=== PATIENT | male | born 1980 | race Caucasian/White ===

== ENCOUNTER 2018-04-05 17:57 | Emergency (ER) | payer MEDICAID ==
[2018-04-05] MEDS ORDERED: DEXAMETHASONE 10 MG/ML 1 ML INJ IM (20:00)
[2018-04-05] MEDS: DEXAMETHASONE 10 MG/ML 1 ML INJ IM (20:08)
[2018-04-05] MEDS: ALBUTEROL 0.5% (NEB) 2.5 MG/0.5 ML AMP INH (20:16)
[2018-04-05] MEDS: IPRATROPIUM (NEB) 0.5 MG/2.5 ML AMP INH (20:17)
== END 2018-04-05 21:16 | disposition home or self-care (01) ==
LOC: FTE 17:57
DX: J45.901 Unspecified asthma with (acute) exacerbation (principal)
CPT/HCPCS: 94644; 96372; 99284-25

== ENCOUNTER 2018-06-06 07:45 | Emergency (ER) | payer SELFPAY, MEDICAID ==
[2018-06-06] MEDS: DEXAMETHASONE 10 MG/ML 1 ML INJ IM (08:12)
[2018-06-06] MEDS: IPRATROPIUM (NEB) 0.5 MG/2.5 ML AMP NEB (08:19)
[2018-06-06] MEDS: ALBUTEROL 0.083% (NEB) 2.5 MG/3 ML AMP NEB (08:19)
== END 2018-06-06 09:02 | disposition home or self-care (01) ==
LOC: FTE 07:45
DX: J45.901 Unspecified asthma with (acute) exacerbation (principal)
CPT/HCPCS: 94664; 96372; 99284-25

== ENCOUNTER 2018-06-24 07:56 | Emergency (ER) | payer SELFPAY ==
[2018-06-24] MEDS: KETOROLAC 60 MG INJ IM (08:41)
== END 2018-06-24 09:18 | disposition home or self-care (01) ==
LOC: FTE 07:56
DX: L03.116 Cellulitis of left lower limb (principal); S90.822A Blister (nonthermal), left foot, initial encounter; J45.909 Unspecified asthma, uncomplicated; W57.XXXA Bitten or stung by nonvenomous insect and other nonvenomous arthropods, initial encounter; Y92.9 Unspecified place or not applicable
CPT/HCPCS: 96372; 99284-25

== ENCOUNTER 2018-07-03 11:37 | Emergency (ER) | payer SELFPAY ==
[2018-07-03] MEDS: DEXAMETHASONE 10 MG/ML 1 ML INJ IM (12:00)
[2018-07-03] MEDS: ALBUTEROL 0.5% (NEB) 2.5 MG/0.5 ML AMP INH (12:19)
[2018-07-03] MEDS: IPRATROPIUM (NEB) 0.5 MG/2.5 ML AMP INH (12:19)
== END 2018-07-03 13:25 | disposition home or self-care (01) ==
LOC: FTE 11:37
DX: J45.901 Unspecified asthma with (acute) exacerbation (principal)
CPT/HCPCS: 94644; 96372; 99284-25

== ENCOUNTER 2018-07-10 21:36 | Inpatient (IN) | payer SELFPAY ==
[2018-07-10] MEDS: EPINEPHrine 1 MG INJ SC (22:16)
[2018-07-10] MEDS: SOD CHLORIDE 0.9% 1,000 ML IV (22:22)
[2018-07-10] MEDS: DEXAMETHASONE 10 MG/ML 1 ML INJ IV (22:22)
[2018-07-10 22:30] LABS: WHITE BLOOD COUNT 14.5 10^3/ul (4.8-10.8)
[2018-07-10 22:30] LABS: ABNORMAL IP MESSAGE 1; HEMATOCRIT 50.5 % (42.0-52.0); HEMOGLOBIN 17.3 g/dl (14.0-18.0); MEAN CORPUSCULAR HEMOGLOBIN 29.9 pg (29.0-33.0); MEAN CORPUSCULAR HGB CONC 34.3 g/dl (32.0-37.0); MEAN CORPUSCULAR VOLUME 87.4 fl (82.0-101.0); MEAN PLATELET VOLUME 10.5 fl (7.4-10.4); PLATELET COUNT 414 10^3/UL (140-415); POSITIVE DIFF @See below; RED BLOOD COUNT 5.78 10^6/ul (4.70-6.10); RED CELL DISTRIBUTION WIDTH 12.1 % (11.5-14.5)
[2018-07-10 22:34] LABS: ADD MAN DIFF? YES
[2018-07-10] MEDS: ALBUTEROL 0.5% (NEB) 2.5 MG/0.5 ML AMP INH (22:35)
[2018-07-10 22:47] LABS: ANION GAP 8 (5-13); BLOOD UREA NITROGEN 12 mg/dl (7-20); CALCIUM 8.1 mg/dl (8.4-10.2); CARBON DIOXIDE 23 mmol/L (21-31); CHLORIDE 109 mmol/L (97-110); CREATININE 1.31 mg/dl (0.61-1.24); Estimated GFR > 60 mL/min (>60); GLUCOSE 177 mg/dl (70-220); POTASSIUM 4.3 mmol/L (3.5-5.1); SODIUM 140 mmol/L (135-144)
[2018-07-10] MEDS: DIPHENHYDRAMINE 50 MG INJ IV (22:55)
[2018-07-10] MEDS: FAMOTIDINE 20 MG TAB PO (22:55)
[2018-07-10 22:59] LABS: TROPONIN-I < 0.012 ng/ml (0.000-0.120)
[2018-07-10 23:19] LABS: EOSINOPHILS % (M) 1 % (0-7); GIANT THROMBO% (M) 1 % (0-0); LYMPHOCYTES #M 5.8 10^3/ul (0.8-2.9); LYMPHOCYTES % (M) 40 % (15-51); MONOCYTE #M 0.5 10^3/ul (0.3-0.9); MONOCYTES % (M) 4 % (0-11); PLATELET ESTIMATE NORMAL; REACTIVE LYMPHOCYTES #M 1.3 10^3/ul (0.0-0.0); REACTIVE LYMPHOCYTES% (M) 9 % (0-0); SEGMENTED NEUTROPHILS (M) % 46 % (39-77); SMUDGE%M 67 % (0-0)
[2018-07-11] MEDS ORDERED: DIPHENHYDRAMINE 50 MG INJ IV (01:00)
[2018-07-11] MEDS ORDERED: ACETAMINOPHEN 325 MG TAB PO (01:00)
[2018-07-11] MEDS ORDERED: ONDANSETRON 4 MG INJ IV (01:00)
[2018-07-11] MEDS ORDERED: NACL 0.9% 3 ML SYG IV (01:00)
[2018-07-11] MEDS ORDERED: BISACODYL (EC) 5 MG TAB PO (01:00)
[2018-07-11] MEDS ORDERED: DOCUSATE SODIUM 100 MG CAP PO (01:00)
[2018-07-11] MEDS ORDERED: ALBUTEROL/IPRATROPIUM (NEB) 3 ML AMP HHN (01:00)
[2018-07-11 06:19] LABS: ADD MAN DIFF? NO
[2018-07-11 06:23] LABS: WHITE BLOOD COUNT 18.3 10^3/ul (4.8-10.8)
[2018-07-11 06:23] LABS: BASOPHILS % 0.2 % (0.0-2.0); HEMATOCRIT 45.7 % (42.0-52.0); HEMOGLOBIN 15.7 g/dl (14.0-18.0); LYMPHOCYTES # 1.1 10^3/ul (0.8-2.9); LYMPHOCYTES % 6.2 % (15.0-51.0); MEAN CORPUSCULAR HEMOGLOBIN 30.1 pg (29.0-33.0); MEAN CORPUSCULAR HGB CONC 34.4 g/dl (32.0-37.0); MEAN CORPUSCULAR VOLUME 87.7 fl (82.0-101.0); MEAN PLATELET VOLUME 10.6 fl (7.4-10.4); MONOCYTE # 0.1 10^3/ul (0.3-0.9); MONOCYTES % 0.5 % (0.0-11.0); NEUTROPHILS % 92.6 % (39.0-77.0); PLATELET COUNT 321 10^3/UL (140-415); RED BLOOD COUNT 5.21 10^6/ul (4.70-6.10); RED CELL DISTRIBUTION WIDTH 12.2 % (11.5-14.5)
[2018-07-11 06:57] LABS: ALANINE AMINOTRANSFERASE 16 IU/L (13-69); ALBUMIN 3.8 g/dl (3.3-4.9); ALBUMIN/GLOBULIN RATIO 1.35; ALKALINE PHOSPHATASE 75 IU/L (42-121); ANION GAP 9 (5-13); ASPARTATE AMINO TRANSFERASE 24 IU/L (15-46); BILIRUBIN,INDIRECT 0.2 mg/dl (0-1.1); BILIRUBIN,TOTAL 0.2 mg/dl (0.2-1.3); BLOOD UREA NITROGEN 12 mg/dl (7-20); CALCIUM 8.7 mg/dl (8.4-10.2); CARBON DIOXIDE 22 mmol/L (21-31); CHLORIDE 108 mmol/L (97-110); CHOL/HDL RATIO 4.9 RATIO; CHOLESTEROL 163 mg/dl (100-200); CREATININE 1.12 mg/dl (0.61-1.24); Estimated GFR > 60 mL/min (>60); GLUCOSE 168 mg/dl (70-220); HDL CHOLESTEROL 33 mg/dl (28-63); LDL CHOLESTEROL,CALCULATED 96 mg/dl; MAGNESIUM 2.1 mg/dl (1.7-2.5); POTASSIUM 4.4 mmol/L (3.5-5.1); SODIUM 139 mmol/L (135-144); TOTAL PROTEIN 6.6 g/dl (6.1-8.1); TRIGLYCERIDES 171 mg/dl (0-149)
[2018-07-11 07:22] LABS: THYROID STIMULATING HORMONE 0.547 MIU/L (0.465-4.680)
[2018-07-11 07:38] LABS: C-REACTIVE PROTEIN 0.8 mg/dl (0.0-0.9)
[2018-07-11] MEDS: CLINDAMYCIN 300 MG CAP PO ×3 (08:35→18:11)
[2018-07-11] MEDS: FAMOTIDINE 20 MG INJ IV ×2 (08:35→20:30)
[2018-07-11 08:38] LABS: ERYTHROCYTE SEDIMENTATION RATE 1 mm/Hr (0-15)
[2018-07-11 12:54] LABS: HEMOGLOBIN A1C 5.3 % (0-5.9)
[2018-07-11 14:43] LABS: AMPHETAMINE/METHAMPHETAMINE Negative (NEGATIVE); BARBITURATES Negative (NEGATIVE); BENZODIAZEPINES Negative (NEGATIVE); COCAINE Negative (NEGATIVE); OPIATES Negative (NEGATIVE)
[2018-07-11 14:57] LABS: CANNABINOIDS Positive (NEGATIVE)
[2018-07-12] MEDS: CLINDAMYCIN 300 MG CAP PO ×3 (00:15→12:10)
[2018-07-12 06:00] LABS: ADD MAN DIFF? NO
[2018-07-12 06:10] LABS: BASOPHILS % 0.2 % (0.0-2.0); HEMATOCRIT 44.5 % (42.0-52.0); HEMOGLOBIN 15.1 g/dl (14.0-18.0); LYMPHOCYTES # 2.3 10^3/ul (0.8-2.9); LYMPHOCYTES % 16.4 % (15.0-51.0); MEAN CORPUSCULAR HGB CONC 33.9 g/dl (32.0-37.0); MEAN CORPUSCULAR VOLUME 88.3 fl (82.0-101.0); MEAN PLATELET VOLUME 10.7 fl (7.4-10.4); MONOCYTE # 0.9 10^3/ul (0.3-0.9); NEUTROPHIL # 10.8 10^3/ul (1.6-7.5); NEUTROPHILS % 76.7 % (39.0-77.0); PLATELET COUNT 322 10^3/UL (140-415); RED BLOOD COUNT 5.04 10^6/ul (4.70-6.10); RED CELL DISTRIBUTION WIDTH 12.4 % (11.5-14.5)
[2018-07-12 06:10] LABS: WHITE BLOOD COUNT 14.1 10^3/ul (4.8-10.8)
[2018-07-12 06:51] LABS: MAGNESIUM 2.1 mg/dl (1.7-2.5)
[2018-07-12 06:57] LABS: ALANINE AMINOTRANSFERASE 15 IU/L (13-69); ALBUMIN 3.9 g/dl (3.3-4.9); ALKALINE PHOSPHATASE 68 IU/L (42-121); ANION GAP 10 (5-13); ASPARTATE AMINO TRANSFERASE 14 IU/L (15-46); BILIRUBIN,INDIRECT 0.3 mg/dl (0-1.1); BILIRUBIN,TOTAL 0.3 mg/dl (0.2-1.3); BLOOD UREA NITROGEN 13 mg/dl (7-20); CALCIUM 8.8 mg/dl (8.4-10.2); CARBON DIOXIDE 23 mmol/L (21-31); CHLORIDE 109 mmol/L (97-110); CREATININE 0.93 mg/dl (0.61-1.24); Estimated GFR > 60 mL/min (>60); GLUCOSE 117 mg/dl (70-220); SODIUM 142 mmol/L (135-144); TOTAL PROTEIN 6.9 g/dl (6.1-8.1)
[2018-07-12] MEDS: CHOLECALCIFEROL 1,000 UNIT TAB PO (08:54)
[2018-07-12] MEDS: FAMOTIDINE 20 MG INJ IV (08:54)
[2018-07-12] MEDS: ENOXAPARIN 40 MG/0.4 ML SYG SC (11:16)
[2018-07-12] MEDS ORDERED: FAMOTIDINE 20 MG TAB PO (21:00)
== END 2018-07-12 18:09 | disposition home or self-care (01) | DRG 918 ==
LOC: TEL 23:49 → E/R 21:36
DX: T36.1X1A Poisoning by cephalosporins and other beta-lactam antibiotics, accidental (unintentional), initial encounter (principal); N17.9 Acute kidney failure, unspecified; E66.9 Obesity, unspecified; Z68.37 Body mass index [BMI] 37.0-37.9, adult; J45.909 Unspecified asthma, uncomplicated; E78.5 Hyperlipidemia, unspecified; L27.0 Generalized skin eruption due to drugs and medicaments taken internally; R06.02 Shortness of breath; E88.81 Metabolic syndrome and other insulin resistance; L08.9 Local infection of the skin and subcutaneous tissue, unspecified
CPT/HCPCS: 71045; 73630-LT; 80048; 80053; 80061; 80307; 82306; 82652; 83036; 83735; 84100; 84443; 84484; 85025; 85651; 86140; 93005; 94644; 96372; 96374; 96375; 99291-25

== ENCOUNTER 2018-07-17 15:10 | Emergency (ER) | payer SELFPAY | END 2018-07-17 17:33 | disposition home or self-care (01) | LOC: FTE 15:10 | DX: Z76.0 Encounter for issue of repeat prescription (principal); J45.909 Unspecified asthma, uncomplicated | CPT/HCPCS: 99281 ==

== ENCOUNTER 2018-07-27 07:57 | Emergency (ER) | payer SELFPAY ==
[2018-07-27] MEDS: TRIMETHOPRIM/SULFAMETHOX (DS) TAB PO (09:17)
[2018-07-27] MEDS: ALBUTEROL 0.083% (NEB) 2.5 MG/3 ML AMP HHN (09:17)
[2018-07-27] MEDS: predniSONE 20 MG TAB PO (09:18)
== END 2018-07-27 10:35 | disposition home or self-care (01) ==
LOC: FTE 07:57
DX: J45.901 Unspecified asthma with (acute) exacerbation (principal); S90.822A Blister (nonthermal), left foot, initial encounter; X58.XXXA Exposure to other specified factors, initial encounter; Y92.9 Unspecified place or not applicable
CPT/HCPCS: 94664; 99283-25

== ENCOUNTER 2018-09-28 06:55 | Emergency (ER) | payer MEDICAID | END 2018-09-28 07:30 | disposition home or self-care (01) | LOC: FTE 06:55 | DX: H69.80 Other specified disorders of Eustachian tube, unspecified ear (principal); J45.909 Unspecified asthma, uncomplicated | CPT/HCPCS: 99283; Z7502 ==

== ENCOUNTER 2018-10-05 09:42 | Emergency (ER) | payer MEDICAID ==
[2018-10-05 10:41] LABS: ADD UMIC YES; UR ASCORBIC ACID NEGATIVE (NEGATIVE); UR BILIRUBIN (Dip) NEGATIVE (NEGATIVE); UR BLOOD (Dip) 1+ mg/dL (NEGATIVE); UR CLARITY SLIGHTLY CLOUDY (CLEAR); UR COLOR YELLOW (YELLOW); UR GLUCOSE (Dip) NEGATIVE (NEGATIVE); UR KETONES (Dip) TRACE mg/dL (NEGATIVE); UR LEUKOCYTE ESTERASE (Dip) NEGATIVE Leu/ul (NEGATIVE); UR MUCUS FEW /HPF (NONE SEEN); UR NITRITE (Dip) NEGATIVE (NEGATIVE); UR RBC 3 /HPF (0-5); UR TOTAL PROTEIN (Dip) 1+ mg/dl (NEGATIVE); UR UROBILINOGEN (Dip) 1+ mg/dL (NEGATIVE); UR WBC 3 /HPF (0-5)
[2018-10-05 10:42] LABS: ADD MAN DIFF? NO
[2018-10-05 10:47] LABS: BASOPHIL # 0.1 10^3/ul (0.0-0.1); BASOPHILS % 0.4 % (0.0-2.0); EOSINOPHILS # 0.1 10^3/ul (0.0-0.5); EOSINOPHILS % 0.6 % (0.0-7.0); HEMATOCRIT 47.4 % (42.0-52.0); HEMOGLOBIN 16.2 g/dl (14.0-18.0); LYMPHOCYTES # 2.3 10^3/ul (0.8-2.9); LYMPHOCYTES % 13.1 % (15.0-51.0); MEAN CORPUSCULAR HEMOGLOBIN 29.1 pg (29.0-33.0); MEAN CORPUSCULAR HGB CONC 34.2 g/dl (32.0-37.0); MEAN CORPUSCULAR VOLUME 85.1 fl (82.0-101.0); MEAN PLATELET VOLUME 10.2 fl (7.4-10.4); MONOCYTE # 1.3 10^3/ul (0.3-0.9); MONOCYTES % 7.5 % (0.0-11.0); NEUTROPHIL # 13.5 10^3/ul (1.6-7.5); NEUTROPHILS % 78.1 % (39.0-77.0); PLATELET COUNT 347 10^3/UL (140-415); RED BLOOD COUNT 5.57 10^6/ul (4.70-6.10); RED CELL DISTRIBUTION WIDTH 11.8 % (11.5-14.5)
[2018-10-05 10:47] LABS: WHITE BLOOD COUNT 17.3 10^3/ul (4.8-10.8)
[2018-10-05 11:05] LABS: BARBITURATES NEGATIVE (NEGATIVE); BENZODIAZEPINES NEGATIVE (NEGATIVE)
[2018-10-05 11:06] LABS: CANNABINOIDS POSITIVE (NEGATIVE); COCAINE POSITIVE (NEGATIVE); OPIATES NEGATIVE (NEGATIVE)
[2018-10-05 11:14] LABS: ALANINE AMINOTRANSFERASE 24 IU/L (13-69); ALBUMIN 4.5 g/dl (3.3-4.9); ALKALINE PHOSPHATASE 97 IU/L (42-121); AMPHETAMINE/METHAMPHETAMINE POSITIVE (NEGATIVE); ANION GAP 13 (5-13); ASPARTATE AMINO TRANSFERASE 35 IU/L (15-46); BILIRUBIN,INDIRECT 0.5 mg/dl (0-1.1); BILIRUBIN,TOTAL 0.5 mg/dl (0.2-1.3); BLOOD UREA NITROGEN 15 mg/dl (7-20); CALCIUM 9.2 mg/dl (8.4-10.2); CARBON DIOXIDE 25 mmol/L (21-31); CHLORIDE 103 mmol/L (97-110); CREATININE 1.28 mg/dl (0.61-1.24); Estimated GFR > 60 mL/min (>60); GLUCOSE 101 mg/dl (70-220); POTASSIUM 3.4 mmol/L (3.5-5.1); SODIUM 141 mmol/L (135-144); TOTAL PROTEIN 7.7 g/dl (6.1-8.1)
[2018-10-05 11:15] LABS: ETHANOL < 10.0 mg/dl (0-0)
[2018-10-05 12:17] LABS: ACETAMINOPHEN < 10.0 ug/ml (10.0-30.0); SALICYLATE < 1.0 mg/dl (5.0-30.0)
[2018-10-05] MEDS: LORAZEPAM 1 MG TAB PO (13:26)
[2018-10-06] MEDS: ACETAMINOPHEN 325 MG TAB PO (02:09)
[2018-10-06] MEDS: IPRATROPIUM (NEB) 0.5 MG/2.5 ML AMP NEB (03:06)
[2018-10-06] MEDS: ALBUTEROL 0.083% (NEB) 2.5 MG/3 ML AMP NEB (03:06)
[2018-10-06] MEDS ORDERED: RISPERIDONE 1 MG TAB PO (14:30)
[2018-10-06] MEDS ORDERED: MIRTAZAPINE 15 MG TAB PO (21:00)
== END 2018-10-06 14:08 | disposition home or self-care (01) ==
LOC: E/R 10-06 14:08
DX: R45.851 Suicidal ideations (principal); F19.10 Other psychoactive substance abuse, uncomplicated; F17.210 Nicotine dependence, cigarettes, uncomplicated; R40.2142 Coma scale, eyes open, spontaneous, at arrival to emergency department; J45.909 Unspecified asthma, uncomplicated; R40.2252 Coma scale, best verbal response, oriented, at arrival to emergency department
CPT/HCPCS: 80053; 80307; 81001; 85025; 94664; 99285-25

== ENCOUNTER 2019-02-02 10:56 | Emergency (ER) | payer SELFPAY, OTHER, MEDICAID ==
[2019-02-02] MEDS: DEXAMETHASONE 10 MG/ML 1 ML INJ IM (12:44)
[2019-02-02] MEDS: IPRATROPIUM (NEB) 0.5 MG/2.5 ML AMP NEB (12:57)
[2019-02-02] MEDS: ALBUTEROL 0.083% (NEB) 2.5 MG/3 ML AMP NEB (12:58)
== END 2019-02-02 14:04 | disposition home or self-care (01) ==
LOC: FTE 14:04
DX: J45.901 Unspecified asthma with (acute) exacerbation (principal); F17.210 Nicotine dependence, cigarettes, uncomplicated; Z76.0 Encounter for issue of repeat prescription
CPT/HCPCS: 71045; 94664; 96372; 99284-25